=== PATIENT | female | born 1950 | race Caucasian/White ===

== ENCOUNTER 2022-04-22 05:51 | Day surgery (SDC) | payer OTHER ==
[2022-04-12 13:19] VITALS: BMI 37.1
[2022-04-22] MEDS ORDERED: MIDAZOLAM HCL 2 MG/2 ML SINGLE DOSE VIAL ONE ×4 (06:56→07:10)
[2022-04-22] MEDS ORDERED: PROPOFOL 20 ML ONE ×3 (06:56)
[2022-04-22] MEDS ORDERED: VANCOMYCIN 1,000 MG VIAL (RESTRICTED TO ID ONLY) ONE (07:00)
[2022-04-22] MEDS ORDERED: ROPIVACAINE HCL/PF 100 MG/20 ML VIAL ONE (07:10)
[2022-04-22] MEDS ORDERED: BUPIVACAINE HCL 50 ML ONE (07:40)
[2022-04-22] MEDS ORDERED: ROCURONIUM BROMIDE 50 MG/5 ML SYRINGE ONE (08:22)
[2022-04-22] MEDS ORDERED: ceFAZolin SODIUM 1 GM VIAL IVPB ONE (08:42)
[2022-04-22] MEDS ORDERED: HYDROmorphone HCL/PF 1 MG/ML VIAL ONE (08:54)
[2022-04-22] MEDS ORDERED: GLYCOPYRROLATE 0.2 MG/1 ML VIAL ONE (09:27)
[2022-04-22] MEDS ORDERED: ceFAZolin SODIUM 1 GM VIAL ONE ×2 (09:27→17:50)
[2022-04-22] MEDS ORDERED: ONDANSETRON 4 MG/2 ML VIAL ONE (09:27)
[2022-04-22] MEDS ORDERED: KETOROLAC TROMETHAMINE 30 MG/1 ML VIAL ONE (09:27)
[2022-04-22] MEDS ORDERED: TRANEXAMIC ACID 1000 MG/10 ML VIAL ONE (09:27)
[2022-04-22] MEDS ORDERED: DEXAMETHASONE SOD PHOSPHATE 4 MG/1 ML VIAL ONE (09:27)
[2022-04-22] MEDS ORDERED: NEOSTIGMINE METHYLSULFATE 0.5 MG/1 ML - 10 ML MDV ONE (09:28)
[2022-04-22] MEDS ORDERED: BUPIVICAINE 0.25%/MORPH PF/KETOROLAC - 51ML DISP.SYRINGE IA ONE ×2 (09:49→09:50)
[2022-04-22] MEDS ORDERED: VANCOMYCIN 1,000 MG VIAL (RESTRICTED TO ID ONLY) IVPB ONE (09:51)
[2022-04-22] MEDS ORDERED: ACETAMINOPHEN 325 MG TABLET (FP) PO PRN (10:37)
[2022-04-22] MEDS ORDERED: SENNOSIDES/DOCUSATE COMBO (SENNA PLUS) TABLET (UD) PO PRN (10:37)
[2022-04-22] MEDS ORDERED: ONDANSETRON 4 MG/2 ML VIAL IVPUSH PRN ×2 (10:37→10:42)
[2022-04-22] MEDS ORDERED: ACETAMINOPHEN INJECTION 100 ML IVPB ONE (10:40)
[2022-04-22] MEDS ORDERED: ALBUTEROL SO4 0.083% IH SOL 2.5 MG/3 ML VIAL.NEB. NEB PRN (10:41)
[2022-04-22] MEDS ORDERED: oxyCODONE HCL 5 MG TABLET PO PRN (10:42)
[2022-04-22] MEDS ORDERED: ACETAMINOPHEN 1000 MG/100 ML BAG IVPB ONE (10:42)
[2022-04-22] MEDS ORDERED: FENTANYL CITRATE/PF 50 MCG/ML VIAL ONE (11:04)
[2022-04-22] MEDS: KETOROLAC TROMETHAMINE 30 MG/1 ML VIAL IVPUSH SCH ×3 (14:13→18:24)
[2022-04-22] MEDS ORDERED: oxyCODONE HCL 5 MG TABLET ONE (17:50)
[2022-04-22] MEDS ORDERED: ceFAZolin 2 GRAM PREMIX BAG IVPB SCH (18:00)
[2022-04-22] MEDS ORDERED: CEFAZOLIN 2 GM in DEXTROSE 5%-WATER - 100 ML IVPB SCH (18:00)
[2022-04-22] MEDS ORDERED: ACETAMINOPHEN 500 MG TABLET (FP) PO SCH (18:00)
[2022-04-22] MEDS: CEFAZOLIN 2 GM in DEXTROSE 5%-WATER - 100 ML IVPB SCH (18:08)
[2022-04-22] MEDS: oxyCODONE HCL 5 MG TABLET PO PRN (18:09)
[2022-04-22] MEDS ORDERED: ACETAMINOPHEN 500 MG TABLET (FP) ONE (18:20)
[2022-04-22] MEDS: ACETAMINOPHEN 500 MG TABLET (FP) PO SCH ×2 (18:21→23:11)
[2022-04-22] MEDS: oxyCODONE HCL 10 MG SUSTAINED ACTING TABLET PO SCH (21:55)
[2022-04-22] MEDS: PANTOPRAZOLE 40 MG TABLET PO SCH (21:58)
[2022-04-22] MEDS ORDERED: PATIENT'S OWN MEDICATION (NON-FORMULARY) (Omeprazole [Omeprazole] 20 MG Tablet.Dr) PO SCH (22:00)
[2022-04-23] MEDS: ACETAMINOPHEN 500 MG TABLET (FP) PO SCH ×4 (06:14→23:02)
[2022-04-23] MEDS: oxyCODONE HCL 5 MG TABLET PO PRN (06:15)
[2022-04-23] MEDS: ENOXAPARIN NA (PORCINE) 40 MG/0.4 ML DISP.SYRIN SQ SCH (06:17)
[2022-04-23 08:19] LABS: CALCIUM 9.1 mg/dl (8.5-10); CREATININE 0.9 mg/dl (0.55-1.3)
[2022-04-23] MEDS ORDERED: DOCUSATE SODIUM 100 MG CAPSULE (FP) PO PRN (09:32)
[2022-04-23] MEDS: PANTOPRAZOLE 40 MG TABLET PO SCH ×2 (10:00→22:41)
[2022-04-23] MEDS: metoPROLOL SUCCINATE 25 MG TAB.SR.24H (FP) PO SCH (10:00)
[2022-04-23] MEDS ORDERED: POLYETHYLENE GLYCOL 3350 119 GM BTL PO SCH (10:00)
[2022-04-23] MEDS: oxyCODONE HCL 10 MG SUSTAINED ACTING TABLET PO SCH (10:00)
[2022-04-23] MEDS ORDERED: IRBESARTAN 75 MG PO SCH (10:00)
[2022-04-23] MEDS: LOSARTAN POTASSIUM 25 MG TABLET PO SCH (10:01)
[2022-04-23] MEDS: CEFAZOLIN 2 GM in DEXTROSE 5%-WATER - 100 ML IVPB SCH (20:32)
[2022-04-24] MEDS: oxyCODONE HCL 10 MG SUSTAINED ACTING TABLET PO SCH ×3 (02:28→21:46)
[2022-04-24] MEDS: ACETAMINOPHEN 500 MG TABLET (FP) PO SCH ×4 (06:16→23:56)
[2022-04-24] MEDS: ENOXAPARIN NA (PORCINE) 40 MG/0.4 ML DISP.SYRIN SQ SCH (06:17)
[2022-04-24 09:14] LABS: HEMATOCRIT 32.7 % (32.4-45.2); HEMOGLOBIN 11.1 G/dL (10.7-15.3); MCH 31.7 pg (25.7-33.7); MCHC 33.8 g/dl (32.0-36.0); MEAN CELL VOLUME 93.6 fl (80-96); MEAN PLT VOLUME 8.9 fl (7.5-11.1); PLATELET COUNT 179.8 10^3/uL (134-434); RBC 3.49 10^6/uL (3.60-5.2); RDW 14.9 % (11.6-15.6); WHITE BLOOD COUNT 9.7 10^3/uL (4.0-10.8)
[2022-04-24] MEDS: PANTOPRAZOLE 40 MG TABLET PO SCH ×2 (09:53→21:46)
[2022-04-24] MEDS: LOSARTAN POTASSIUM 25 MG TABLET PO SCH (09:53)
[2022-04-24] MEDS: POLYETHYLENE GLYCOL (HEALTHYLAX) 3350 17 GM PACKET PO SCH (09:53)
[2022-04-24] MEDS: metoPROLOL SUCCINATE 25 MG TAB.SR.24H (FP) PO SCH (09:53)
[2022-04-24 09:55] LABS: ALBUMIN 2.9 g/dl (3.4-5.0); BILIRUBIN,TOTAL 0.8 mg/dl (0.2-1); MAGNESIUM 1.8 mg/dL (1.8-2.4); TOT PROT 5.5 g/dl (6.4-8.2)
[2022-04-24] MEDS: oxyCODONE HCL 5 MG TABLET PO PRN (20:17)
[2022-04-25] MEDS: ACETAMINOPHEN 500 MG TABLET (FP) PO SCH ×3 (06:35→18:12)
[2022-04-25] MEDS: ENOXAPARIN NA (PORCINE) 40 MG/0.4 ML DISP.SYRIN SQ SCH (06:36)
[2022-04-25 08:56] LABS: HEMOGLOBIN 10.9 G/dL (10.7-15.3); MCH 31.8 pg (25.7-33.7); MEAN CELL VOLUME 93.5 fl (80-96); MEAN PLT VOLUME 8.7 fl (7.5-11.1); PLATELET COUNT 197.7 10^3/uL (134-434); RBC 3.42 10^6/uL (3.60-5.2); RDW 14.8 % (11.6-15.6); WHITE BLOOD COUNT 9.1 10^3/uL (4.0-10.8)
[2022-04-25 09:20] LABS: CREATININE 0.8 mg/dl (0.55-1.3)
[2022-04-25] MEDS: POLYETHYLENE GLYCOL (HEALTHYLAX) 3350 17 GM PACKET PO SCH (09:42)
[2022-04-25] MEDS: LOSARTAN POTASSIUM 25 MG TABLET PO SCH (09:45)
[2022-04-25] MEDS: metoPROLOL SUCCINATE 25 MG TAB.SR.24H (FP) PO SCH (09:45)
[2022-04-25] MEDS: PANTOPRAZOLE 40 MG TABLET PO SCH ×2 (09:45→21:24)
[2022-04-25] MEDS: oxyCODONE HCL 10 MG SUSTAINED ACTING TABLET PO SCH (09:45)
[2022-04-26] MEDS: ACETAMINOPHEN 500 MG TABLET (FP) PO SCH ×3 (00:07→12:41)
[2022-04-26] MEDS: ENOXAPARIN NA (PORCINE) 40 MG/0.4 ML DISP.SYRIN SQ SCH (06:15)
[2022-04-26] MEDS: PANTOPRAZOLE 40 MG TABLET PO SCH (09:40)
[2022-04-26] MEDS: metoPROLOL SUCCINATE 25 MG TAB.SR.24H (FP) PO SCH (09:40)
[2022-04-26] MEDS: POLYETHYLENE GLYCOL (HEALTHYLAX) 3350 17 GM PACKET PO SCH (09:40)
[2022-04-26] MEDS: LOSARTAN POTASSIUM 25 MG TABLET PO SCH (09:40)
[2022-04-26 14:13] VITALS: BP 132/47; PULSE 78; TEMP 98.9
== END 2022-04-26 15:38 | disposition home or self-care (01) ==
LOC: FASUSAT 05:51 → FM/S 11:42 → FASUSAT 13:45
PROVIDERS: ATTEND Orthopaedic Surgery
PROC: 8E0YXBZ Computer Assisted Procedure of Lower Extremity (ICD-10-PCS; 2022-04-22)
PROC: 8E0Y0CZ Robotic Assisted Procedure of Lower Extremity, Open Approach (ICD-10-PCS; 2022-04-22)
PROC: 0SR90J9 Replacement of Right Hip Joint with Synthetic Substitute, Cemented, Open Approach (ICD-10-PCS; principal; 2022-04-22 07:30)
DX: M16.11 Unilateral primary osteoarthritis, right hip (principal); I10 Essential (primary) hypertension; E78.5 Hyperlipidemia, unspecified; J45.909 Unspecified asthma, uncomplicated; Z86.711 Personal history of pulmonary embolism
CPT/HCPCS: 20985; 27130; C1776; S2900; 36415; 73502-TC-RT-FY; 80048; 80053; 83735; 85025; 85027; 88304-TC; 88311-TC; 94660; 94760; 97116-GP; 97162-GP